=== PATIENT | female | born 1975 | race Caucasian/White ===

== ENCOUNTER 2022-06-07 07:04 | Emergency (ER) | payer OTHER, BC, MEDICAID ==
[~2022-06-07] VITALS: Ht 160 cm; Wt 90.9 kg
[2022-06-07] MEDS ORDERED: HYDROcodone/acetaminophen 5mg/325mg tablet PO ONE (07:25)
[2022-06-07] MEDS ORDERED: ondansetron 4mg rapidly disintigrating tab PO ONE (07:25)
[2022-06-07] MEDS ORDERED: HYDR-3965 PO (08:32)
[2022-06-07 08:43] VITALS: BP 160/101
== END 2022-06-07 08:47 | disposition home or self-care (01) ==
LOC: ER 07:06
DX: M79.602 Pain in left arm (principal); M54.6 Pain in thoracic spine; R51.9 Headache, unspecified; Z88.5 Allergy status to narcotic agent; V87.7XXA Person injured in collision between other specified motor vehicles (traffic), initial encounter; Y93.89 Activity, other specified; Y92.488 Other paved roadways as the place of occurrence of the external cause; Y99.8 Other external cause status
CPT/HCPCS: 70450; 71045; 73090; 99284

== ENCOUNTER 2023-01-31 07:56 | Emergency (ER) | payer BC, MEDICAID ==
[~2023-01-31] VITALS: Ht 160 cm; Wt 104.5 kg
[2023-01-31 08:16] VITALS: TEMP 97
[2023-01-31] MEDS ORDERED: ketorolac tromethamine 15mg/ml inj. IV ONE (08:35)
[2023-01-31] MEDS ORDERED: proCHLORperazine 10 MG/2 ml inj IV ONE (08:35)
[2023-01-31 09:11] LABS: BASOPHILS # (AUTO) 0.1 X10'3 (0-0.2); BASOPHILS % (AUTO) 0.6 % (0-1); EOSINOPHILS # (AUTO) 0.2 X10'3 (0-0.9); EOSINOPHILS % (AUTO) 1.5 % (0-6); HEMATOCRIT 43.7 % (35.0-45.0); HEMOGLOBIN 14.7 g/dl (12.0-16.0); LYMPHOCYTES % (AUTO) 15.9 % (21-51); MEAN CORPUSCULAR HEMOGLOBIN 30.7 PG (27.0-31.0); MEAN CORPUSCULAR HGB CONC 33.7 g/dL (33.0-36.5); MEAN CORPUSCULAR VOLUME 91.1 FL (78-98); MEAN PLATELET VOLUME 8.2 FL (7.4-10.4); MONOCYTES % (AUTO) 7.7 % (2-12); NEUTROPHILS # (AUTO) 9.2 X10'3 (1.8-7.7); NEUTROPHILS % (AUTO) 74.3 % (42-75); PLATELET COUNT 317 X10'3 (140-440); RED CELL DISTRIBUTION WIDTH 13.2 % (11.5-14.5); WHITE BLOOD COUNT 12.4 X10'3 (4.5-11.0)
[2023-01-31 09:13] LABS: ALANINE AMINOTRANSFERASE 122 U/L (12-78); ALBUMIN 3.8 G/DL (3.4-5.0); ALKALINE PHOSPHATASE 56 IU/L (46-116); ANION GAP 12 (8-16); ASPARTATE AMINO TRANSFERASE 84 U/L (10-37); BILIRUBIN,TOTAL 0.8 MG/DL (0.1-1.0); BLOOD UREA NITROGEN 10 MG/DL (7-18); CALCIUM 9.3 MG/DL (8.5-10.1); CHLORIDE 102 MMOL/L (99-107); CREATININE 0.91 MG/DL (0.40-0.90); GLUCOSE 177 MG/DL (70-104); LIPASE 98 U/L (73-393); POTASSIUM 3.9 MMOL/L (3.5-5.1); SODIUM 135 MMOL/L (135-145); TOTAL CARBON DIOXIDE 20.6 MMOL/L (24-32); TOTAL PROTEIN 7.6 G/DL (6.4-8.2); eCRCL 64 ML/MIN; eGFR 67 ML/MIN
[2023-01-31] MEDS ORDERED: iohexol 300mg/ml 100ml inj. ONE (11:49)
[2023-01-31 11:55] LABS: BILIRUBIN,URINE NEGATIVE (Neg); CLARITY,URINE CLEAR (Clear); COLOR,URINE YELLOW (Yellow); GLUCOSE, URINE NEGATIVE (Neg); KETONES,URINE >=80 mg/dl (Neg); LEUKOCYTE ESTERASE ,URINE NEGATIVE (Neg); NITRITES, URINE NEGATIVE (Neg); OCCULT BLOOD,URINE TRACE-INTACT (Neg); PROTEIN,URINE NEGATIVE (Neg); UROBILINOGEN,URINE 0.2 E.U/dL (0.2-1.0)
[2023-01-31 11:56] LABS: URINE HCG NEGATIVE (NEG)
[2023-01-31 11:59] LABS: UA COLLECTION TYPE CLN CATCH MIDSTREAM
[2023-01-31 12:06] LABS: RBC,URINE NONE SEEN /HPF (0-2); WBC,URINE 0-4 /HPF (0-4)
[2023-01-31 12:07] LABS: BACTERIA,URINE NONE SEEN /HPF (Neg); MUCUS STRANDS FEW /LPF (Neg); SQUAMOUS EPITHELIAL CELL,UR FEW /LPF (FEW)
[2023-01-31 12:30] VITALS: BP 165/99; PULSE 51; RESP 18; O2SAT 98
[2023-01-31] MEDS ORDERED: ONDA4TAB12 PO (13:00)
[2023-01-31] MEDS ORDERED: DICY10CA88 PO (13:00)
== END 2023-01-31 13:39 | disposition home or self-care (01) ==
LOC: ER 07:56
DX: R10.11 Right upper quadrant pain (principal); Z88.5 Allergy status to narcotic agent
CPT/HCPCS: 36415; 74177; 80053; 81001; 81025; 83690; 85025; 96374; 96375; 99285; J0780; J1885; J3490; Q9967

== ENCOUNTER 2023-06-01 10:08 | Emergency (ER) | payer BC, MEDICAID ==
[~2023-06-01] VITALS: Ht 160 cm; Wt 105.0 kg
[~2023-06-01 10:08] MED LIST: DICY10CA88 PO; ONDA4TAB12 PO
[2023-06-01 10:30] VITALS: TEMP 99
[2023-06-01] MEDS ORDERED: diphenhydrAMINE 50 mg/ml inj IV ONE (11:00)
[2023-06-01] MEDS ORDERED: metoclopramide 5 mg/ml inj IV ONE ×2 (11:00→12:40)
[2023-06-01] MEDS ORDERED: ringers solution, lactated 1000ml IV soln IV ONE (11:00)
[2023-06-01] MEDS ORDERED: pantoprazole 40 MG vial IV SCH (11:05)
[2023-06-01 11:12] LABS: BASOPHILS # (AUTO) 0.1 X10'3 (0-0.2); BASOPHILS % (AUTO) 0.5 % (0-1); EOSINOPHILS % (AUTO) 0.2 % (0-6); HEMOGLOBIN 14.2 g/dl (12.0-16.0); LYMPHOCYTES # (AUTO) 1.3 X10'3 (1.1-4.8); LYMPHOCYTES % (AUTO) 9.3 % (21-51); MEAN CORPUSCULAR HEMOGLOBIN 30.6 PG (27.0-31.0); MEAN CORPUSCULAR HGB CONC 33.8 g/dL (33.0-36.5); MEAN CORPUSCULAR VOLUME 90.4 FL (78-98); MEAN PLATELET VOLUME 7.9 FL (7.4-10.4); MONOCYTES # (AUTO) 0.6 X10'3 (0-0.9); MONOCYTES % (AUTO) 4.2 % (2-12); NEUTROPHILS # (AUTO) 11.6 X10'3 (1.8-7.7); NEUTROPHILS % (AUTO) 85.8 % (42-75); PLATELET COUNT 299 X10'3 (140-440); RED BLOOD COUNT 4.65 X10'6 (4.20-5.60); RED CELL DISTRIBUTION WIDTH 13.8 % (11.5-14.5); WHITE BLOOD COUNT 13.5 X10'3 (4.5-11.0)
[2023-06-01 11:15] LABS: ALANINE AMINOTRANSFERASE 145 U/L (12-78); ALBUMIN 3.5 G/DL (3.4-5.0); ALBUMIN/GLOBULIN RATIO 0.9 (1.1-1.5); ALKALINE PHOSPHATASE 56 IU/L (46-116); ANION GAP 14 (8-16); ASPARTATE AMINO TRANSFERASE 124 U/L (10-37); BILIRUBIN,TOTAL 0.6 MG/DL (0.1-1.0); BLOOD UREA NITROGEN 12 MG/DL (7-18); BUN/CREATININE RATIO 13.5 (10.0-20.0); CALCIUM 8.7 MG/DL (8.5-10.1); CHLORIDE 101 MMOL/L (99-107); CREATININE 0.89 MG/DL (0.40-0.90); GLUCOSE 135 MG/DL (70-104); LIPASE 35 U/L (16-77); POTASSIUM 3.8 MMOL/L (3.5-5.1); SODIUM 135 MMOL/L (135-145); TOTAL CARBON DIOXIDE 20.2 MMOL/L (24-32); TOTAL PROTEIN 7.5 G/DL (6.4-8.2); eCRCL 65 ML/MIN; eGFR 68 ML/MIN
[2023-06-01 12:46] LABS: BILIRUBIN,URINE NEGATIVE (Neg); CLARITY,URINE CLEAR (Clear); COLOR,URINE YELLOW (Yellow); GLUCOSE, URINE NEGATIVE (Neg); KETONES,URINE TRACE mg/dl (Neg); LEUKOCYTE ESTERASE ,URINE NEGATIVE (Neg); NITRITES, URINE NEGATIVE (Neg); OCCULT BLOOD,URINE MODERATE (Neg); PH,URINE 7.5 (4.8-8.0); PROTEIN,URINE NEGATIVE (Neg); UROBILINOGEN,URINE 0.2 E.U/dL (0.2-1.0)
[2023-06-01 12:48] LABS: URINE HCG NEGATIVE (NEG)
[2023-06-01 12:50] LABS: UA COLLECTION TYPE CLN CATCH MIDSTREAM
[2023-06-01 12:55] LABS: BACTERIA,URINE FEW /HPF (Neg); MUCUS STRANDS NONE SEEN /LPF (Neg); RBC,URINE 0-2 /HPF (0-2); SQUAMOUS EPITHELIAL CELL,UR FEW /LPF (FEW); WBC,URINE 0-4 /HPF (0-4)
[2023-06-01 12:59] LABS: URINE AMPHETAMINE SCREEN NEGATIVE (Neg); URINE BARBITUATE SCREEN NEGATIVE (Neg); URINE BENZODIAZEPINES SCREEN NEGATIVE (Neg); URINE CANNABINOID SCREEN POSITIVE (Neg); URINE COCAINE SCREEN NEGATIVE (Neg); URINE METHADONE SCREEN NEGATIVE (Neg); URINE OPIATE SCREEN POSITIVE (Neg); URINE PHENCYCLIDINE SCREEN NEGATIVE (Neg)
[2023-06-01] MEDS ORDERED: METO10TA3 PO (13:36)
[2023-06-01 14:00] VITALS: BP 164/112; PULSE 79; RESP 16; O2SAT 95
[2023-06-03] MEDS ORDERED: metoclopramide 5 mg/ml inj IM ONE (13:25)
== END 2023-06-01 14:03 | disposition home or self-care (01) ==
LOC: ER 10:09
DX: R11.15 Cyclical vomiting syndrome unrelated to migraine (principal); R10.13 Epigastric pain
CPT/HCPCS: 80053; 80305; 81001; 81025; 83690; 85025; 96361; 96374; 96375; 96376; 99285; C9113; J1200; J2765; J7120

== ENCOUNTER 2023-06-03 11:55 | Emergency (ER) | payer MEDICAID ==
[~2023-06-03] VITALS: Ht 160 cm; Wt 104.5 kg
[~2023-06-03 11:55] MED LIST changes: +METO10TA3 PO
[2023-06-03 12:34] VITALS: BP 193/98; PULSE 61; RESP 18; TEMP 98.3; O2SAT 99
[2023-06-03 13:02] LABS: URINE HCG NEGATIVE (NEG)
[2023-06-03 13:10] LABS: BILIRUBIN,URINE NEGATIVE (Neg); CLARITY,URINE CLEAR (Clear); COLOR,URINE YELLOW (Yellow); GLUCOSE, URINE NEGATIVE (Neg); KETONES,URINE NEGATIVE (Neg); LEUKOCYTE ESTERASE ,URINE NEGATIVE (Neg); NITRITES, URINE NEGATIVE (Neg); OCCULT BLOOD,URINE TRACE-INTACT (Neg); PROTEIN,URINE NEGATIVE (Neg); UROBILINOGEN,URINE 0.2 E.U/dL (0.2-1.0)
[2023-06-03 13:19] LABS: UA COLLECTION TYPE CLN CATCH MIDSTREAM
[2023-06-03 13:26] LABS: BACTERIA,URINE NONE SEEN /HPF (Neg); MUCUS STRANDS NONE SEEN /LPF (Neg); RBC,URINE 0-2 /HPF (0-2); SQUAMOUS EPITHELIAL CELL,UR FEW /LPF (FEW); WBC,URINE 0-4 /HPF (0-4)
[2023-06-03 13:34] LABS: BASOPHILS # (AUTO) 0.1 X10'3 (0-0.2); BASOPHILS % (AUTO) 0.6 % (0-1); EOSINOPHILS # (AUTO) 0.1 X10'3 (0-0.9); EOSINOPHILS % (AUTO) 0.5 % (0-6); HEMATOCRIT 42.2 % (35.0-45.0); HEMOGLOBIN 14.4 g/dl (12.0-16.0); LYMPHOCYTES # (AUTO) 2.2 X10'3 (1.1-4.8); MEAN CORPUSCULAR HEMOGLOBIN 30.8 PG (27.0-31.0); MEAN CORPUSCULAR HGB CONC 34.2 g/dL (33.0-36.5); MEAN CORPUSCULAR VOLUME 90.1 FL (78-98); MEAN PLATELET VOLUME 7.6 FL (7.4-10.4); MONOCYTES # (AUTO) 1.2 X10'3 (0-0.9); MONOCYTES % (AUTO) 8.9 % (2-12); NEUTROPHILS # (AUTO) 10.3 X10'3 (1.8-7.7); PLATELET COUNT 357 X10'3 (140-440); RED BLOOD COUNT 4.68 X10'6 (4.20-5.60); RED CELL DISTRIBUTION WIDTH 13.6 % (11.5-14.5)
[2023-06-03 13:50] LABS: ALANINE AMINOTRANSFERASE 132 U/L (12-78); ALBUMIN 3.8 G/DL (3.4-5.0); ALKALINE PHOSPHATASE 57 IU/L (46-116); ANION GAP 12 (8-16); ASPARTATE AMINO TRANSFERASE 78 U/L (10-37); BILIRUBIN,TOTAL 1.2 MG/DL (0.1-1.0); BLOOD UREA NITROGEN 12 MG/DL (7-18); CALCIUM 9.8 MG/DL (8.5-10.1); CHLORIDE 101 MMOL/L (99-107); GLUCOSE 132 MG/DL (70-104); LIPASE 81 U/L (16-77); POTASSIUM 3.1 MMOL/L (3.5-5.1); SODIUM 135 MMOL/L (135-145); TOTAL PROTEIN 7.8 G/DL (6.4-8.2); eCRCL 58 ML/MIN; eGFR 60 ML/MIN
[2023-06-03] MEDS ORDERED: ondansetron 4mg rapidly disintigrating tab PO ONE (14:00)
[2023-06-03] MEDS ORDERED: metoclopramide 5 mg/ml inj IM ONE (14:00)
== END 2023-06-03 18:56 | disposition left against medical advice (07) ==
LOC: ER 11:56
DX: R10.13 Epigastric pain (principal); Z53.21 Procedure and treatment not carried out due to patient leaving prior to being seen by health care provider
CPT/HCPCS: 36415; 80053; 81001; 81025; 83690; 85025; 99281; J2765

== ENCOUNTER 2023-10-23 07:02 | Emergency (ER) | payer BC, MEDICAID, OTHER ==
[~2023-10-23] VITALS: Ht 160 cm; Wt 107.2 kg
[~2023-10-23 07:02] MED LIST changes: +HYDR1TAB PO; +LEVO100T46 PO; +METH-234 PO; -METO10TA3 PO; +NAPR-56 PO; +ONDA4TAB6 PO
[2023-10-23 07:10] VITALS: TEMP 98
[2023-10-23] MEDS: normal saline 1000ml 1,000 ML IV ONE (07:53)
[2023-10-23 07:56] LABS: BASOPHILS # (AUTO) 0.1 X10'3 (0-0.2); BASOPHILS % (AUTO) 0.3 % (0-1); EOSINOPHILS % (AUTO) 0.2 % (0-6); HEMATOCRIT 45.5 % (35.0-45.0); HEMOGLOBIN 15.6 g/dl (12.0-16.0); LYMPHOCYTES # (AUTO) 2.4 X10'3 (1.1-4.8); LYMPHOCYTES % (AUTO) 16.9 % (21-51); MEAN CORPUSCULAR HEMOGLOBIN 30.8 PG (27.0-31.0); MEAN CORPUSCULAR HGB CONC 34.2 g/dL (33.0-36.5); MEAN CORPUSCULAR VOLUME 90.2 FL (78-98); MEAN PLATELET VOLUME 7.3 FL (7.4-10.4); MONOCYTES # (AUTO) 1.3 X10'3 (0-0.9); MONOCYTES % (AUTO) 9.1 % (2-12); NEUTROPHILS # (AUTO) 10.6 X10'3 (1.8-7.7); NEUTROPHILS % (AUTO) 73.5 % (42-75); PLATELET COUNT 330 X10'3 (140-440); RED BLOOD COUNT 5.05 X10'6 (4.20-5.60); RED CELL DISTRIBUTION WIDTH 13.4 % (11.5-14.5); WHITE BLOOD COUNT 14.5 X10'3 (4.5-11.0)
[2023-10-23] MEDS: diphenhydrAMINE 50 mg/ml inj IV ONE (08:08)
[2023-10-23] MEDS: metoclopramide 5 mg/ml inj IV ONE (08:08)
[2023-10-23 08:09] LABS: ALANINE AMINOTRANSFERASE 88 U/L (12-78); ALBUMIN 3.8 G/DL (3.4-5.0); ALKALINE PHOSPHATASE 52 IU/L (46-116); ANION GAP 12 (8-16); ASPARTATE AMINO TRANSFERASE 41 U/L (10-37); BILIRUBIN,TOTAL 1.6 MG/DL (0.1-1.0); BLOOD UREA NITROGEN 11 MG/DL (7-18); BUN/CREATININE RATIO 10.7 (10.0-20.0); CHLORIDE 97 MMOL/L (99-107); CREATININE 1.03 MG/DL (0.40-0.90); GLUCOSE 143 MG/DL (70-104); LIPASE 36 U/L (16-77); SODIUM 133 MMOL/L (135-145); TOTAL CARBON DIOXIDE 23.8 MMOL/L (24-32); TOTAL PROTEIN 7.7 G/DL (6.4-8.2); eCRCL 56 ML/MIN; eGFR 57 ML/MIN
[2023-10-23 08:09] LABS: URINE HCG NEGATIVE (NEG)
[2023-10-23 08:11] LABS: POTASSIUM 2.9 MMOL/L (3.5-5.1)
[2023-10-23 08:13] LABS: BILIRUBIN,URINE SMALL (Neg); CLARITY,URINE SLIGHTLY CLOUDY (Clear); COLOR,URINE YELLOW (Yellow); GLUCOSE, URINE NEGATIVE (Neg); KETONES,URINE >=80 mg/dl (Neg); LEUKOCYTE ESTERASE ,URINE NEGATIVE (Neg); NITRITES, URINE NEGATIVE (Neg); OCCULT BLOOD,URINE SMALL (Neg); PROTEIN,URINE NEGATIVE (Neg); UROBILINOGEN,URINE 0.2 E.U/dL (0.2-1.0)
[2023-10-23 08:14] LABS: URINE AMPHETAMINE SCREEN NEGATIVE (Neg); URINE BARBITUATE SCREEN NEGATIVE (Neg); URINE BENZODIAZEPINES SCREEN NEGATIVE (Neg); URINE CANNABINOID SCREEN POSITIVE (Neg); URINE COCAINE SCREEN NEGATIVE (Neg); URINE METHADONE SCREEN NEGATIVE (Neg); URINE PHENCYCLIDINE SCREEN NEGATIVE (Neg)
[2023-10-23 08:17] LABS: UA COLLECTION TYPE CLN CATCH MIDSTREAM
[2023-10-23 08:18] LABS: MUCUS STRANDS MODERATE /LPF (Neg); SQUAMOUS EPITHELIAL CELL,UR MANY /LPF (FEW)
[2023-10-23 08:21] LABS: AMORPHOUS URATES 1+; BACTERIA,URINE FEW /HPF (Neg); WBC,URINE 0-4 /HPF (0-4)
[2023-10-23] MEDS: magnesium 2GM in 50ml NS 50 ML IV ONE (09:28)
[2023-10-23] MEDS: potassium CL 10mEq/100ml bag 100 ML IV ONE (09:38)
[2023-10-23] MEDS ORDERED: ONDA4TAB12 PO (11:13)
[2023-10-23] MEDS: normal saline 1000ML IV soln IVB ONE (11:31)
[2023-10-23] MEDS: potassium Cl 20 mEq SR tablet PO ONE (11:34)
[2023-10-23 12:58] VITALS: BP 151/91; PULSE 72; RESP 18; O2SAT 98
== END 2023-10-23 13:08 | disposition home or self-care (01) ==
LOC: ER 07:03
DX: R11.15 Cyclical vomiting syndrome unrelated to migraine (principal); R74.01 Elevation of levels of liver transaminase levels; E87.6 Hypokalemia; R11.10 Vomiting, unspecified; F12.90 Cannabis use, unspecified, uncomplicated; Z88.5 Allergy status to narcotic agent; Z79.899 Other long term (current) drug therapy
CPT/HCPCS: 36415; 80053; 80305; 81001; 81025; 83690; 83735; 85025; 96361; 96365; 96368; 96375; 99285; J1200; J2765; J3475; J3480; J7030